=== PATIENT | female | born 1965 | race African-American/Black ===

== ENCOUNTER → 2016-12-13 | Outpatient (CLI) | payer OTHER ==
[~2016-12-13] MED LIST: REGADENOSON 0.4 MG/5 ML DISP.SYRIN. IV ONE
--- NOTE | 2016-12-13 11:11 | CARD ---
APPROVED REPORT EXAM: Two-dimensional and M-mode echocardiogram with Doppler and color Doppler. Other Information Quality : Good INDICATION Murmur 2D DIMENSIONS RVDd2.2 (2.9-3.5cm)Left Atrium(2D)3.5 (1.6-4.0cm) IVSd1.0 (0.7-1.1cm)Aortic Root(2D)3.6 (2.0-3.7cm) LVDd4.7 (3.9-5.9cm)LVOT Diameter2.0 (1.8-2.4cm) PWd1.1 (0.7-1.1cm)LVDs3.1 (2.5-4.0cm) FS (%) 30.0 %SV66.1 ml LVEF(%)60.0 (>50%) Aortic Valve AoV Peak Asad.184.6cm/sAoV VTI48.2cm AO Peak GR.14.0mmHgLVOT Peak Asad.92.6cm/s AO Mean GR.8mmHgAVA (VMAX)1.64cm2 GILMAR (VTI)1.50cm2 Mitral Valve MV E Wshcxpoh09.0cm/sMV DECEL MNWJ571xm MV A Xwdzlnff88.2cm/sE/A Ratio1.4 Pulmonary Valve PV Peak Kdfvnqnu460.4cm/s Tricuspid Valve TR P. Devptdeu941by/sRAP QQWEUCCP5kkHd TR Peak Gr.18zlGmNSUZ10vdUs Pulmonary Vein S1 Lxhjpgfb64.8cm/sD2 Mnfqbnfi68.2cm/s PVa hvjhaqsu165bsrb LEFT VENTRICLE The left ventricle is normal size. There is normal left ventricular wall thickness. Left ventricle sy stolic function is low normal. The Ejection Fraction is 50-55%. There is normal LV segmental wall mot ion. Septal motion consistent with post-operative state. Transmitral Doppler flow pattern is Grade II -pseudonormal filling dynamics. RIGHT VENTRICLE The right ventricle is enlarged mild to moderately. The right ventricular systolic function is normal . ATRIA The left atrium size is normal. The right atrium size is mildly enlarged. The interatrial septum is i ntact with no evidence for an atrial septal defect or patent foramen ovale as noted on 2-D or Doppler imaging. AORTIC VALVE Grossly normal trileaflet valve. Doppler and Color Flow revealed no significant aortic regurgitation. There is no significant aortic valvular stenosis. MITRAL VALVE The mitral valve is calcified but opens well. There is no evidence of mitral valve prolapse. There is no mitral valve stenosis. Doppler and Color-flow revealed trace to mild mitral regurgitation. TRICUSPID VALVE The tricuspid valve is normal in structure and function. Doppler and Color Flow revealed mild tricusp id regurgitation. There is moderate pulmonary hypertension. The PA pressure was estimated at 44 mmHg. There is no tricuspid valve stenosis. PULMONIC VALVE The pulmonic valve is mildly thickened. Doppler and Color Flow revealed moderate pulmonic valvular re gurgitation. There is mild to moderate pulmonic stenosis. GREAT VESSELS The aortic root is mildly enlarged at 3.6 cm. The ascending aorta is mildly dilated at 4.0 cm. The IV C is normal in size and collapses >50% with inspiration. PERICARDIAL EFFUSION There is no evidence of significant pericardial effusion. Critical Notification Critical Value: No <Conclusion> Left ventricle systolic function is low normal. The Ejection Fraction is 50-55%. There is normal LV segmental wall motion. Septal motion consistent with post-operative state. The right ventricle is enlarged mild to moderately. Doppler and Color Flow revealed mild tricuspid regurgitation. There is moderate pulmonary hypertensio n. The PA pressure was estimated at 44 mmHg. Doppler and Color Flow revealed moderate pulmonic valvular regurgitation. There is mild to moderate pulmonic stenosis. The ascending aorta is mildly dilated at 4.0 cm.
--- NOTE | 2016-12-13 12:19 | RAD ---
APPROVED REPORT Test Type: Pharmacological Stress Nurse/Tech: Cesia Moise R.N. Test Indications: c/p Cardiac History: valve repair when she was 2 yrs old,smoker, DM Medications: See Electronic Medical Record Medical History: See Electronic Medical Record Resting ECG: SB w/ bbb Resting Heart Rate: 54 bpm Resting Blood Pressure: 162/86mmHg Pretest Chest Pain: No chest pain Nurse/Tech Notes S1S2 w/ murmur, lungs CTA Consent: The procedure was explained to the patient in lay terms. Informed consent was witnessed. Jaiden eout was entered into [employer] History and Stress Test performed by RT Eden (R) (N) Pharm. Details Pharmacologic stress testing was performed using 0.4mg per 5ml of regadenoson given intravenously ove r 7-10 seconds. Stress Symptoms a little SOA, queasy and slight h/a. this resoved by the end of recovery period. T wave did switch di rection in leads AVR,AVF,II V5 AND V6 just afte rlexiscan given but did return to their original dire ction by the end of recovery period POST EXERCISE Reason for Termination: Infusion complete Max HR: 103 bpm Max Blood Pressure: 184/72mmHg Blood Pressure response to exercise: Normal blood pressure response during stress. Heart Rate response to exercise: wnl Chest Pain: No. Arrhythmia: No. ST Change: No. Imaging Protocol IMAGE PROTOCOL: Rest Tc-99m/stress Tc-99m 1 day Rest: Stress: Viability: Radiopharm.Tc99m GlvdgqpivPk12q Sestamibi Wzdc27rSa 32mCi Duration 15min. 12min. Img Date 12/13/2016 12/13/2016 Inj-Img Fzql87uuk. 60min. Rest Admin Site:IV - Left ForearmAdministrator:NAVI Monterroso Stress Admin Site: IV - Left ForearmAdministrator: NAVI Monterroso STRESS DATA End Diast. Vol.81.0mlAv. Heart Rate69.0bpm End Syst. Vol.26.0mlCO Index BSA0.0L/min Myocardial Hrwu185.0gEject. Msyjcirw34.0% Stress Rates Pk. Fill Rate2.95EDV/secLVtime Pk. Fill 261.97msec Pk. Empty Rate3.70ESV/secLVtime Pk. Yrwsm058.72msec 3 Pk. Fill0.32EDV/sec Stress Scores Regional WT0.00Summed WT6.00 Regional WM0.00Summed WM2.00 The rest and stress images show normal perfusion, normal contraction and thickening. LV Perf. Quant 17 Seg. SSS0.00 17 Seg. SRS0.00 17 Seg. SDS0.00 Stress Defect Extent (% LAD)0.00Rest Defect Extent (% LAD)0.00Rev. Defect Extent (% LAD)0.00 Stress Defect Extent (% LCX) 0.00Rest Defect Extent (% LCX)0.00Rev. Defect Extent (% LCX)0.00 Stress Defect Extent (% RCA)0.00Rest Defect Extent (% RCA)0.00Rev. Defect Extent (% RCA)0.00 Stress Defect Extent (% JUAN)0.00Rest Defect Extent (% JUAN)0.00Rev. Defect Extent (% JUAN)0.00 Other Information Quality:Average Risk Assessment: Low Risk Conclusion 1. No evidence of stress induced EKG changes 2. Normal myocardial perfusion at stress/rest 3. Normal EF at > 65% 4. Low risk study
== END | disposition home or self-care (01) ==
LOC: NM 07:26
PROVIDERS: ATTEND Internal Medicine Cardiovascular Disease
DX: I37.2 Nonrheumatic pulmonary valve stenosis with insufficiency (principal); I07.1 Rheumatic tricuspid insufficiency; I27.2 Other secondary pulmonary hypertension; I25.10 Atherosclerotic heart disease of native coronary artery without angina pectoris
CPT/HCPCS: 78452; 93017; 93306; 96374; 96375; 96376; A9500; J2785

== ENCOUNTER → 2019-04-26 | Outpatient (CLI) | payer OTHER ==
--- NOTE | 2019-04-26 14:41 | CARD ---
MR#: [id number] Date of Study: 04/26/2019 Ordering Physician: CASEY WEBER, Referring Physician: CASEY WEBER, Tech: Rosie Pitt [facility] APPROVED REPORT EXAM: Two-dimensional and M-mode echocardiogram with Doppler and color Doppler. Other Information Quality : GoodHR: 55bpm Rhythm : Bradycardia INDICATION History of Tetralogy of Fallot repair 2D DIMENSIONS RVDd2.7 (2.9-3.5cm)Left Atrium(2D)3.0 (1.6-4.0cm) IVSd1.1 (0.7-1.1cm)Aortic Root(2D)4.1 (2.0-3.7cm) LVDd4.4 (3.9-5.9cm)LVOT Diameter2.2 (1.8-2.4cm) PWd1.2 (0.7-1.1cm)LVDs3.1 (2.5-4.0cm) FS (%) 30.4 %SV51.3 ml LVEF(%)55.0 (>50%) M-Mode DIMENSIONS Left Atrium(MM)3.36 (2.5-4.0cm)Aortic Root4.13 (2.2-3.7cm) Aortic Valve AoV Peak Asad.197.8cm/sAoV VTI53.5cm AO Peak GR.15.6mmHgLVOT Peak Asad.90.5cm/s AO Mean GR.10mmHgAVA (VMAX)1.77cm2 GILMAR (VTI)1.80cm2 Mitral Valve MV E Mpavpnzv20.8cm/sMV DECEL YPJF611mz MV A Npqiejso31.8cm/sE/A Ratio1.2 Pulmonary Valve PV Peak Dekcdclc243.5cm/sPV Peak Grad.22mmHg RVOT VTI59.0cm Tricuspid Valve TR P. Iswvjaya471ji/sRAP BKSNONSL9vnIs TR Peak Gr.24csQhHRJQ67ecDg Pulmonary Vein S1 Yikozmnu83.9cm/sD2 Dngmpbhl49.1cm/s PVa zxhqakar399itnb LEFT VENTRICLE The left ventricle is normal size. There is mild concentric left ventricular hypertrophy. The left ve ntricular systolic function is normal. The Ejection Fraction is 55%. Septal motion consistent with po st-operative state. Transmitral Doppler flow pattern is Grade II-pseudonormal filling dynamics. Trabe culations noted in LV. RIGHT VENTRICLE The right ventricle is normal size. There is normal right ventricular wall thickness. The right ventr icular systolic function is normal. ATRIA The left atrium size is normal. The right atrium size is normal. The interatrial septum is intact wit h no evidence for an atrial septal defect or patent foramen ovale as noted on 2-D or Doppler imaging. AORTIC VALVE The aortic valve is not well visualized. Doppler and Color Flow revealed trace aortic regurgitation. There is no significant aortic valvular stenosis. MITRAL VALVE The mitral valve is normal in structure and function. There is no evidence of mitral valve prolapse. There is no mitral valve stenosis. Doppler and Color-flow revealed trace mitral regurgitation. TRICUSPID VALVE The tricuspid valve is normal in structure and function. Doppler and Color Flow revealed mild tricusp id regurgitation. There is moderate pulmonary hypertension. The PA pressure was estimated at 43 mmHg. There is no tricuspid valve prolapse or vegetation. There is no tricuspid valve stenosis. PULMONIC VALVE The pulmonary valve is normal in structure and function. Doppler and Color Flow revealed moderate pul vernon valvular regurgitation. There is mild to moderate pulmonic stenosis with a peak gradient of 22 mmHg and a mean of 11 mmHg. GREAT VESSELS The aortic root is mildly to moderately enlarged at 4.1cm. The ascending aorta is Mildly dilated at 4 .2cm. The IVC is normal in size and collapses >50% with inspiration. PERICARDIAL EFFUSION There is no evidence of significant pericardial effusion. Critical Notification Critical Value: No <Conclusion> The left ventricular systolic function is normal. The Ejection Fraction is 55%. Septal motion consistent with post-operative state. Transmitral Doppler flow pattern is Grade II-pseudonormal filling dynamics. Trace mitral regurgitation. Mild tricuspid regurgitation. The PA pressure was estimated at 43 mmHg. Mild to moderate pulmonic stenosis. Moderate pulmonic valvular regurgitation. The ascending aorta is Mildly dilated at 4.2cm. There is no evidence of significant pericardial effusion. Signed by : Juan Jose Arenas, Electronically Approved : 04/26/2019 14:41:19
== END | disposition home or self-care (01) ==
LOC: ECHO 13:19
PROVIDERS: ATTEND Internal Medicine Cardiovascular Disease
DX: I08.8 Other rheumatic multiple valve diseases (principal); I27.20 Pulmonary hypertension, unspecified; Q21.3 Tetralogy of Fallot
CPT/HCPCS: 93306

== ENCOUNTER → 2019-05-21 | Outpatient (CLI) | payer OTHER ==
--- NOTE | 2019-05-21 12:28 | RAD ---
Renal ultrasound 05/21/2019 CLINICAL HISTORY: Hematuria. TECHNIQUE: A real-time ultrasound examination of both kidneys and the urinary bladder was performed. Multiple images were obtained. FINDINGS: Both kidneys are within normal limits in size and echogenicity. The right kidney measures 12.7 cm in length. The left kidney measures 12.0 cm in length. No focal abnormality of either kidney is seen. No renal calculus is noted. There is no evidence of hydronephrosis. The urinary bladder is distended with urine. No abnormality is seen. IMPRESSION: Negative study. Electronically signed by: Jose Canales MD (05/21/2019 12:25 PM) [place] [id number]
--- NOTE | 2019-05-21 15:30 | RAD ---
Pelvic ultrasound to include transabdominal and transvaginal imaging 05/21/2019 CLINICAL HISTORY: Pelvic pain. TECHNIQUE: Using the distended urinary bladder as a sonographic window, a real time ultrasound examination of the pelvis was performed. Additionally in an attempt to better evaluate the uterus and adnexa, a transvaginal ultrasound study was performed. Multiple images were obtained. FINDINGS: The uterus is within normal limits in size. It measures 6.9 x 3.7 x 2.9 cm in longitudinal, transverse, and AP dimensions. The endometrial echo complex measures 6 mm in thickness which is within normal limits. No focal abnormality of the uterus is seen. A small amount of fluid is seen within the endometrial canal along with the cervical canal. The right ovary is normal in size and echogenicity. It measures 1.7 x 1.7 x 1.3 cm in size. The left ovary is not visualized. No adnexal mass is seen. No free fluid is seen. IMPRESSION: Small amount of fluid is seen involving the endometrial and cervical canal. Otherwise negative study. Electronically signed by: Jose Canales MD (05/21/2019 3:27 PM) [place] [id number]
== END | disposition home or self-care (01) ==
LOC: US 10:26
PROVIDERS: ATTEND Family Medicine
DX: N32.89 Other specified disorders of bladder (principal)
CPT/HCPCS: 76770; 76830; 76856

== ENCOUNTER → 2020-07-14 | Outpatient (CLI) | payer OTHER ==
--- NOTE | 2020-07-15 16:31 | CARD ---
MR#: [id number] Date of Study: 07/14/2020 Ordering Physician: CASEY WEBER, Referring Physician: CASEY WEBER, Tech: Sydni Rocha [facility] APPROVED REPORT EXAM: Two-dimensional and M-mode echocardiogram with Doppler and color Doppler. Other Information Quality : Good INDICATION History: Tetralogy of Fallot surgery at 1 years old 2D DIMENSIONS RVDd2.9 (2.9-3.5cm)Left Atrium(2D)3.1 (1.6-4.0cm) IVSd0.8 (0.7-1.1cm)Aortic Root(2D)4.2 (2.0-3.7cm) LVDd4.8 (3.9-5.9cm)LVOT Diameter2.0 (1.8-2.4cm) PWd0.8 (0.7-1.1cm)LVDs3.7 (2.5-4.0cm) FS (%) 24.1 %SV51.8 ml Aortic Valve AoV Peak Asad.105.0cm/sAoV VTI25.7cm AO Peak GR.4.4mmHgLVOT Peak Asad.104.1cm/s AO Mean GR.3mmHgAVA (VMAX)3.07cm2 GILMAR (VTI)2.80cm2 Mitral Valve MV E Kklcncyo08.6cm/sMV DECEL FCLS727zk MV A Ojcnaiub82.4cm/sE/A Ratio1.3 Pulmonary Valve PV Peak Jshmkmlz381.6cm/sPV Peak Grad.21mmHg Tricuspid Valve TR P. Tbehvyiz185ad/sRAP AIYGXEOI0cuHi TR Peak Gr.36naGqCHHY14mpYg Pulmonary Vein S1 Vqzpdtvn58.9cm/sD2 Vpjzjvhq06.5cm/s LEFT VENTRICLE The left ventricle is normal size. There is normal left ventricular wall thickness. Left ventricle sy stolic function is mildly impaired. The Ejection Fraction is 45-50%. Septal motion consistent with po st-operative state. Transmitral Doppler flow pattern is Grade I-abnormal relaxation pattern. RIGHT VENTRICLE The right ventricle is normal size. The right ventricular systolic function is normal. ATRIA The left atrium size is normal. The right atrium size is normal. The interatrial septum is intact wit h no evidence for an atrial septal defect or patent foramen ovale as noted on 2-D or Doppler imaging. AORTIC VALVE The aortic valve is not well visualized but appears to be functioning normally by Doppler interrogati on. Doppler and Color Flow revealed no significant aortic regurgitation. There is no significant aort ic valvular stenosis. MITRAL VALVE The mitral valve is calcified but opens well. There is no evidence of mitral valve prolapse. There is no mitral valve stenosis. Doppler and Color Flow revealed trace mitral valve regurgitation. TRICUSPID VALVE The tricuspid valve is normal in structure and function. Doppler and Color Flow revealed mild tricusp id regurgitation. The PA pressure was estimated at 39 mmHg. There is no tricuspid valve stenosis. PULMONIC VALVE The pulmonic valve appears normal in structure. Doppler and Color Flow revealed moderate pulmonic anil vular regurgitation. There is mild to moderate pulmonic stenosis. GREAT VESSELS The aortic root is moderately enlarged at 4.2 cm. The ascending aorta is moderately dilated at 4.3 cm . The descending aorta is dilated at 3.5 cm. The IVC is normal in size and collapses >50% with inspir ation. PERICARDIAL EFFUSION There is no evidence of significant pericardial effusion. Critical Notification Critical Value: No <Conclusion> The left ventricle is normal size. Left ventricle systolic function is mildly impaired. The Ejection Fraction is 45-50%. Septal motion consistent with post-operative state. Doppler and Color Flow revealed no significant aortic regurgitation. There is no significant aortic valvular stenosis. Doppler and Color Flow revealed trace mitral valve regurgitation. Doppler and Color Flow revealed mild tricuspid regurgitation. The PA pressure was estimated at 39 mmHg. Doppler and Color Flow revealed moderate pulmonic valvular regurgitation. There is mild to moderate pulmonic stenosis. The aortic root is moderately enlarged at 4.2 cm. The ascending aorta is moderately dilated at 4.3 cm. The descending aorta is dilated at 3.5 cm. Signed by : Brad Sin MD Electronically Approved : 07/15/2020 16:30:56
== END | disposition home or self-care (01) ==
LOC: ECHO 10:06
PROVIDERS: ATTEND Internal Medicine Cardiovascular Disease
DX: I08.8 Other rheumatic multiple valve diseases (principal); Q21.3 Tetralogy of Fallot
CPT/HCPCS: 93306

== ENCOUNTER → 2020-08-18 | Outpatient (CLI) | payer OTHER | END | disposition home or self-care (01) | LOC: LAB 07:32 | PROVIDERS: ATTEND Internal Medicine Gastroenterology | DX: Z01.812 Encounter for preprocedural laboratory examination (principal); Z12.11 Encounter for screening for malignant neoplasm of colon; Z20.828 Contact with and (suspected) exposure to other viral communicable diseases | CPT/HCPCS: U0003-CS ==

== ENCOUNTER → 2020-08-20 | Day surgery (SDC) | payer OTHER ==
[~2020-08-20] MED LIST changes: +AMLO5TAB10 PO; +ATOR40TA59 PO; +GLIP5TAB10 PO; +IV RINGERS,LACTATED 1000ML 1,000 ML IV ONE; +LIDOCAINE 2% PF 5 ML VIAL. ONE; +LISI-130 PO; +METF500T16 PO; +PROPOFOL 10 MG/ML (20ML) VIAL. IV ONE; -REGADENOSON 0.4 MG/5 ML DISP.SYRIN. IV ONE
[2020-08-20 09:34] VITALS: BP 132/77
--- NOTE | 2020-08-20 10:13 | HP ---
ADMIT DATE: 08/20/2020 Updated History and Physical REFERRING PHYSICIAN: Lauren Hensley MD. HISTORY OF PRESENT ILLNESS: A 55-year-old female whose past medical history is significant for hyperlipidemia, hypertension, congenital heart disease, arthritis, diabetes, seen for screening colon exam. Bowel habits are regular without diarrhea or constipation. Family history is negative for colon cancer. She had daily bowel movements without diarrhea or constipation. There has been no bleeding. She is otherwise without additional complaints. PAST MEDICAL HISTORY: Congenital heart disease, hyperlipidemia, hypertension, arthritis, diabetes. ALLERGIES: None. MEDICATIONS: Include amlodipine, atorvastatin, glipizide, lisinopril, metformin. FAMILY AND SOCIAL HISTORY: Nondrinker, nonsmoker. REVIEW OF SYSTEMS: Per records. PHYSICAL EXAMINATION: GENERAL: Well-developed, well-nourished female who is alert, cooperative, in no acute distress. VITAL SIGNS: Temperature 97.5, pulse 60, respiratory rate 20. LUNGS: Clear. CARDIOVASCULAR: Reveals an S1, S2 without S3, S4 or appreciable murmur. ABDOMEN: Reveals a soft abdomen, normal bowel sounds. Without hepatosplenomegaly. IMPRESSION: Colorectal screening is warranted at this time. Risks and benefits of procedure including risk of hemorrhage and perforation were discussed. The patient is willing to proceed. PATRIC HAHN MD DR: SUGAR/nts JOB#: [id number] / [id number]
== END ==
LOC: ENDOS 08:14
PROVIDERS: ATTEND Internal Medicine Gastroenterology
DX: Z12.11 Encounter for screening for malignant neoplasm of colon (principal); I10 Essential (primary) hypertension; E78.5 Hyperlipidemia, unspecified; I25.10 Atherosclerotic heart disease of native coronary artery without angina pectoris; E11.9 Type 2 diabetes mellitus without complications; M19.90 Unspecified osteoarthritis, unspecified site; K64.0 First degree hemorrhoids; Z79.84 Long term (current) use of oral hypoglycemic drugs; Z79.899 Other long term (current) drug therapy
CPT/HCPCS: 45378; J2704

== ENCOUNTER → 2021-11-16 | Outpatient (CLI) | payer OTHER ==
[2020-08-20 09:34] VITALS: BP 132/77
[~2021-11-16] MED LIST changes: +AMLO-186 PO; -AMLO5TAB10 PO; -IV RINGERS,LACTATED 1000ML 1,000 ML IV ONE; -LIDOCAINE 2% PF 5 ML VIAL. ONE; -PROPOFOL 10 MG/ML (20ML) VIAL. IV ONE
--- NOTE | 2021-11-16 13:38 | CARD ---
MR#: [id number] Date of Study: 11/16/2021 Ordering Physician: CASEY WEBER, Referring Physician: CASEY WEBER, Tech: Deborah Dasilva [facility] APPROVED REPORT EXAM: Two-dimensional and M-mode echocardiogram with Doppler and color Doppler. Other Information Quality : AverageHR: 69bpm INDICATION Dyspnea RISK FACTORS Hypertension Diabetes 2D DIMENSIONS RVDd3.5 (2.9-3.5cm)Left Atrium(2D)3.0 (1.6-4.0cm) IVSd1.4 (0.7-1.1cm)Aortic Root(2D)4.3 (2.0-3.7cm) LVDd4.2 (3.9-5.9cm)LVOT Diameter2.0 (1.8-2.4cm) PWd1.5 (0.7-1.1cm)LVDs2.7 (2.5-4.0cm) FS (%) 36.6 %SV52.8 ml LVEF(%)66.7 (>50%) Aortic Valve AoV Peak Asad.109.9cm/sAoV VTI26.3cm AO Peak GR.4.8mmHgLVOT Peak Asad.104.6cm/s AO Mean GR.3mmHgAVA (VMAX)2.98cm2 Mitral Valve MV E Lnbgyjtr63.9cm/sMV DECEL [id number] MV A Qzkekrdx68.9cm/sE/A Ratio1.1 Pulmonary Valve PV Peak Wvgixsiv299.8cm/s Tricuspid Valve TR P. Fwteplib080gi/sTR Peak Gr.26mmHg LEFT VENTRICLE The left ventricle is normal size. There is mild to moderate concentric left ventricular hypertrophy. The left ventricular systoilic function is mildly diminished. Septal wall motion consistent with pos t-operative state. The ejection fraction is 45-50%. There is global hypokinesis of the left ventricle . Transmitral Doppler flow pattern is Grade II-pseudonormal filling dynamics. RIGHT VENTRICLE The right ventricle is normal size. There is normal right ventricular wall thickness. Systolic functi on is borderline reduced. ATRIA The left atrium size is normal. The right atrium size is normal. The interatrial septum is intact wit h no evidence for an atrial septal defect or patent foramen ovale as noted on 2-D or Doppler imaging. AORTIC VALVE The aortic valve is normal in structure and function. Doppler and Color Flow revealed no significant aortic regurgitation. There is no significant aortic valvular stenosis. MITRAL VALVE The mitral valve is normal in structure and function. There is no evidence of mitral valve prolapse. There is no mitral valve stenosis. Doppler and Color-flow revealed trace mitral regurgitation. TRICUSPID VALVE The tricuspid valve is normal in structure and function. Doppler and Color Flow revealed mild tricusp id regurgitation. Estimated PAP 30 mmHg. There is no tricuspid valve stenosis. PULMONIC VALVE Doppler and Color Flow revealed mild pulmonic valvular regurgitation. There is mild pulmonic stenosis . Maximum gradient by doppler calculated 22 mmHg. GREAT VESSELS The aortic root is mildly to moderately enlarged. The ascending aorta is Mildly dilated. The IVC is n ormal in size and collapses >50% with inspiration. PERICARDIAL EFFUSION There is no evidence of significant pericardial effusion. Critical Notification Critical Value: No <Conclusion> The left ventricular systoilic function is mildly diminished. Septal wall motion consistent with post-operative state. The ejection fraction is 45-50%. Trace mitral regurgitation. Mild tricuspid regurgitation. Estimated PAP 30 mmHg. There is no evidence of significant pericardial effusion. Signed by : Juan Jose Arenas, Electronically Approved : 11/16/2021 13:37:54
== END ==
LOC: ECHO 10:06
PROVIDERS: ATTEND Internal Medicine Cardiovascular Disease
DX: I07.1 Rheumatic tricuspid insufficiency (principal); I37.1 Nonrheumatic pulmonary valve insufficiency; I77.819 Aortic ectasia, unspecified site; Q21.3 Tetralogy of Fallot; R06.00 Dyspnea, unspecified
CPT/HCPCS: 93306